=== PATIENT | male | born 1935 ===

== ENCOUNTER 2017-11-17 14:07 | Inpatient (IN) | payer MEDICARE, BC ==
[~2017-11-17] VITALS: Ht 149.8 cm; Wt 77.1 kg
--- NOTE | ~2017-11-17 | PR ---
[place], [place] PROGRESS NOTE NAME: ANA FELDMAN SR UNIT #: [id number] ROOM: 312 DOCTOR: LASHELL ARRIOLA MD BIRTHDATE: [birth year] DOS: 11/24/2017 CHIEF COMPLAINT: "Good morning." SUMMARY OF THE VISIT: The patient was interviewed as he was grabbing a magazine to read; he stopped and engaged in conversation readily. He remains pleasant, but confused. He could not tell me how long he has been here nor could he remember breakfast. He does complain of being constipated. No other complaints are noted. MENTAL STATUS: He is alert and oriented to person, possibly place, not to time. Mood does seem to be trending towards euthymia. Affect is more appropriate. There is no li, hypomania or psychosis. Short term memory is poor. PLAN: I will max out the Namenda, bringing it to 10 mg b.i.d., renew his phenobarbital, continue to support and monitor. LASHELL ARRIOLA MD CM:PNTRANS [id number] LASHELL ARRIOLA MD 11/25/17 0436 interface
--- NOTE | ~2017-11-17 | PR ---
[place], [place] PROGRESS NOTE NAME: ANA FELDMAN SR [id number] UNIT #: [id number] ROOM: 312 DOCTOR: LASHELL ARRIOLA MD BIRTHDATE: [birth year] DOS: 11/25/2017 CHIEF COMPLAINT: "I had an incomplete breakfast. I had no jam or jelly or sugar. I am not diabetic. I want to see the doctor." SUMMARY OF THE VISIT: The patient was interviewed as he was sitting in the dining area. He had his breakfast eaten and complained of the above noted issues. I did offer to get him another breakfast, but he now stated it is too late in the morning. He was fairly pleasant, otherwise and redirected easily. He still is very confused and disjointed and disoriented. MENTAL STATUS: He is alert and oriented to person, place, not time. Mood does seem to be trending towards euthymia. Affect is more appropriate. There is no li or hypomania. There are no auditory or visual hallucinations. Short-term memory continues to be problematic. PLAN: I will continue his current psychotropic regimen, awaiting PASR to be able to explore placement options. Discharge then when stable. LASHELL ARRIOLA MD CM:PNTRANS [id number] LASHELL ARRIOLA MD 11/26/17 0555 interface
--- NOTE | ~2017-11-17 | PR ---
[place], [place] PROGRESS NOTE NAME: ANA FELDMAN SR UNIT #: [id number] ROOM: 312 DOCTOR: JESSIE JOE DO BIRTHDATE: [birth year] DOS: 11/19/2017 PSYCHIATRIC PROGRESS NOTE SUMMARY OF VISIT: An 82-year-old male interviewed while eating breakfast in the dining jordan. He reports he does not know of any family visit and believes he has been in the hospital about 3 or 4 days. The patient has limited interaction during this interview and remains with his back turned to us while eating. Per nursing, the patient became argumentative if you bring up the incident where he drank [place]-Lita 2 weeks ago. In addition, the patient's son also had called about 4 times last night around 1:00 a.m., yelling at nurses and demanding to speak to his father. The patient has been attending and participating in group activities. The patient slept about 7 hours last night. MENTAL STATUS EXAMINATION: He is alert and oriented to person, place and time. Mood is depressed. The patient's thought processes are slow and somewhat disjointed. There is no li or hypomania. There is no agitation. Short term memory is mostly intact. PLAN: 1. The recent lab work showed the patient had decreased vitamin D at 18.5 and decreased vitamin B12 at 302. Vitamin D supplementation 2000 units p.o. q.a.m. and vitamin B12 injection 1000 mcg IM every 30 days have been started. 2. Exelon patch 4.6 mg daily. 3. We will continue to engage the patient in individual and shah milieu activity, returning to the least restrictive environment and psychiatrically stable. Discharge will depend on medical and psychiatric status at that time. ADDENDUM Dr. Arriola 11/27 03:30 p.m.: Above note reviewed. Agree with observations, recommendations, and overall treatment plan. Jessie Joe DO [place], [place] PROGRESS NOTE NAME: ANA FELDMAN SR UNIT #: [id number] ROOM: 312 DOCTOR: JESSIE JOE DO BIRTHDATE: [birth year] LASHELL ARRIOLA MD CM:PNSAMARA 104 KARIN JOE 12/30/17 1042 JENNIFER SIU.TM
--- NOTE | ~2017-11-17 | PR ---
[place], [place] PROGRESS NOTE NAME: ANA FELDMAN SR UNIT #: [id number] ROOM: 312 DOCTOR: LASHELL ARRIOLA MD BIRTHDATE: [birth year] DOS: 11/23/2017 CHIEF COMPLAINT: "Oh, good morning." SUMMARY OF THE VISIT: The patient was interviewed in the dining area where he was sitting by himself. As I approached, he engaged in conversation. He was pleasant, but confused. He could not tell me how long he has been here in the hospital, nor could he remember why. He did report he is sleeping and eating well. He voiced no other complaints. MENTAL STATUS: He is alert and oriented with time gaps that are significant. Mood does seem to be more euthymic. Affect is more appropriate. There is no li, hypomania or psychosis. Short term memory is exceedingly poor. PLAN: I will maintain his Exelon patch at 13.3 mg a day, increase Namenda from 10 mg daily to 15 mg daily with a target dose of 20 mg a day in mind. LASHELL ARRIOLA MD CM:PNTRANS [phone] LASHELL ARRIOLA MD 11/24/17 0039 interface
--- NOTE | ~2017-11-17 | CON ---
[place], [place] REPORT OF CONSULTATION NAME: [facility]AN SR [id number] UNIT #: [id number] ROOM: 312 DOCTOR: KARLIE SCHUMACHER ED.DJIE) BIRTHDATE: [birth year] DOS: 11/19/2017 HISTORY OF PRESENT ILLNESS: The patient is an 82-year-old male referred by Dr. Arriola for competency. At the present time, this patient is on the Senior Behavioral Health Unit at [facility]. When I asked him his age, he told me he was 62 years old but eventually did figure out that he is 82 years old. He states that he is , but has been for quite some time. He has 5 children, 4 sons and 1 daughter. I spoke at length with his son, Jone, who is his power of family law attorney. 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 He states his family physician is Dr. Jean. His medical history is pertinent for major depressive disorder with psychotic features, sleep apnea, seizure disorder, history of left colectomy, splenectomy and a history of cardiac surgery, coronary artery disease, COPD and hypertension. His medications include Remeron, Invega, phenobarbital and Dilantin. This patient does not use any alcoholic beverages, but does admit that he did smoke, but did quit quite some time ago. He was awake, alert and oriented to person only. He knew he was in the Behavioral Health Unit in the hospital, but he did not know where the hospital was. He did know that it was 2017, but he was not certain of the month. He was aware he had been in another hospital before he came to [facility], but he could not name the hospital. He could not tell me the street, where he lived and could not tell me the town where he lived. He could also not tell me where his children lived, although several live nearby according to the patient. His short and his long-term memory appear to be impaired with his short term memory more impaired. His insight, judgment and concentration are poor. He did state that he did not think he could return home, which is definitely the case for this patient. In my opinion, he needs to go to some type of assisted living facility. He also does have a guardian who is his son and I think all decision should be made by his guardian at this time because the patient is clearly not competent to understand the risks and benefits of his decisions. He apparently drank [place]Lita in an attempt to commit suicide. He has been hospitalized twice over the last several weeks for suicide gestures. He stated that he knew he did the wrong thing and that it was against his belief in God, but he was not certain exactly why he did became very depressed. DIAGNOSES: 1. Major depressive disorder with psychotic features. 2. Minor neurocognitive disorder - mild Alzheimer disease. RECOMMENDATIONS: In my opinion, all the decisions should be made by his healthcare power of family law attorney because he is clearly not able to make decisions about his self-care and he is clearly not able to live independently. Thank you very much for this consult. [place], [place] REPORT OF CONSULTATION NAME: ARIADNA FELDMAN SRMASOLE [place] UNIT #: [id number] ROOM: 312 DOCTOR: KARLIE SCHUMACHER ED.D (JIE) BIRTHDATE: [birth year] KARLIE SCHUMACHER ED.D CM:CONSTR:REPORT OF CONSULTATION 31 11/20/17 1443 destiny ARRIOLA MD
--- NOTE | ~2017-11-17 | DS ---
[place], [place] DISCHARGE SUMMARY NAME: [id number] UNIT #: [id number] ROOM: 312 DOCTOR: LASHELL ARRIOLA MD BIRTHDATE: [birth year] DOS: 11/27/2017 CHIEF COMPLAINT: "I wish people would stop talking about it, I made a mistake." HISTORY OF PRESENT ILLNESS: This is an 82-year-old male who was sent here on an involuntary basis from [facility]. The patient had presented there with a chief complaint of Pinesol overdose. The patient had previously tried another suicide attempt approximately 2 weeks prior to this attempt. The patient reportedly has been feeling much more depressed and stated to doctors at [facility] that he just wanted to . Most recently, he was given a diagnosis of Alzheimer dementia, which seems to be worsening his overall disposition: The patient presented to [place] very depressed and rambling with tangential speech. Given the severity of his depression with multiple suicide attempts, it was decided that inpatient stabilization was warranted and he was sent here on an involuntary basis to rule out any organic factors to attempt to stabilize on medication, to engage in individual and shah milieu activity and then to return to the least restrictive environment when psychiatrically stable. PAST MEDICAL HISTORY: Remarkable for coronary artery disease, COPD, hypertension, obstructive sleep apnea, seizure disorder. SOCIAL HISTORY: He has been a cigarette smoker in the past. He has never used smokeless tobacco. He does not drink alcohol nor use illicit drugs. STRENGTHS: He is ambulatory and has a supportive family. WEAKNESSES: Worsening confusion and poor coping skills. SUMMARY OF HOSPITAL COURSE: The patient was admitted to the unit where he was found to be both depressed and somewhat confused. He was started on Remeron 15 mg at bedtime as well as Invega 3 mg in the morning to decrease some of his mood lability and impulsivity. Additionally, he was started on Exelon patch and Namenda to help improve or maintain ADLs, behavior and cognition. He tolerated the medication regimen well. The Remeron and the Invega were maintained at their starting doses with good benefit. The Exelon patch was increased gradually from its starting dose of 4.6 mg a day to its target dose of 13.3 mg a day while Namenda was started at 5 mg a day and brought up to its maximum dose of 10 mg twice daily. The patient had substantial and significant improvement. His sleep and appetite normalized. He no longer voiced suicidal thoughts. He did engage in individual and shah milieu activity. He was able to read, watch television and engage in activities very well. Family was contacted and they did request that he be placed into a long-term care facility as he could no longer live independently. A passer was obtained and the patient was eventually accepted by [facility] in [place], [place]. MENTAL STATUS AT DISCHARGE: The patient is alert and oriented to person, place, not necessarily time. Mood does seem to be euthymic. He was able to laugh and joke with me on the day of discharge. He engaged readily in conversation. His [place], [place] DISCHARGE SUMMARY NAME: ANA FELDMAN SR Nas [facility]: [id number] UNIT #: [id number] ROOM: [facility] DOCTOR: LASHELL ARRIOLA MD BIRTHDATE: [birth year] speech rate and pattern had normalized. There was no tangentiality or circumstantiality. There was no overt hypomania or li and likewise, there were no overt auditory or visual hallucinations. He did process slowly at times and short-term memory continued to be problematic. DISCHARGE DIAGNOSES: Major depression, recurrent with psychotic features and Alzheimer's dementia. DISPOSITION: The patient is to go to [facility]. I will follow him there psychiatrically. At the time of discharge, he was medically and psychiatrically stable and his biopsychosocial needs were adequately being met by his family as well as the community at large. LASHELL ARRIOLA MD CM:DISCHARG [phone] LASHELL ARRIOLA MD 11/28/17 0025 interface
--- NOTE | ~2017-11-17 | PR ---
[place], [place] PROGRESS NOTE NAME: GASTON HERNADEZANA Lovell UNIT #: [id number] ROOM: 312 DOCTOR: JESSIE JOE DO BIRTHDATE: [birth year] DOS: 11/20/2017 PSYCHIATRIC PROGRESS NOTE CHIEF COMPLAINT: ""Very glad, very happy." SUMMARY OF VISIT: An 82-year-old male was interviewed while sitting in the dining jordan reading. The patient reports that he is very happy and that he has his glasses now because he can read better. He states that originally taken away, but now he can enjoy reading. Asked the patient how long he has been here and the patient states he has been here too long and that we cannot keep him here forever. Per nursing staff, the patient slept over 8 hours last night. MENTAL STATUS EXAMINATION: He is alert and oriented to person, but not place or time. Mood is depressed. He has disjointed thought processes. There is no li or hypomania. There is no agitation. Short-term memory now has some gap. PLAN: 1. Increase Exelon patch 9.5 mg daily. 2. Namenda 5 mg at bedtime. 3. Dr. Tobar has deemed the patient to be incompetent. 4. We will continue to encourage the patient to engage in individual and shah milieu activity, returning to the least restrictive environment when psychiatrically stable. ADDENDUM Dr. Arriola 11/27 03:30 p.m.: Above note reviewed. Agree with observations, recommendations, and overall treatment plan. Jessie Joe DO [place], [place] PROGRESS NOTE NAME: ANA FELDMAN SR UNIT #: [id number] ROOM: 312 DOCTOR: JESSIE JOE DO BIRTHDATE: [birth year] LASHELL ARRIOLA MD CM:PNTRANS 1106 T: JESSIE JOE DO 11/27/17 1557 RINKU PATEL.JBR
--- NOTE | ~2017-11-17 | WRIGHTHP ---
[place], [place] PATIENT HISTORY AND PHYSICAL EXAM NAME[id number] UNIT #: [id number] ROOM: 312 DOCTOR: LASHELL ARRIOLA MD BIRTHDATE: [birth year] DOS: 11/18/2017 PSYCHIATRIC EVALUATION CHIEF COMPLAINT: "I wish people would stop talking about it, I made a mistake." HISTORY OF PRESENT ILLNESS: This is an 82-year-old male who was sent here on an involuntary basis from [facility]. The patient had presented there with the chief complaint of a Pinesol overdose. The patient had tried suicide approximately 2 weeks prior to this as well. He has been feeling increasingly depressed and stated to the doctors at [facility] that he wanted to . Most recently, he was given the diagnosis of Alzheimer's dementia, which seems to be complicating matters. While presenting to [place], he was found to be very depressed with very rambling, tangential speech. It was felt that given the severity of his depression and suicide attempt that inpatient stabilization was warranted. The patient was sent from [facility] to the [facility] for further evaluation and treatment. PAST MEDICAL HISTORY: Remarkable for coronary artery disease, COPD, hypertension, obstructive sleep apnea and seizure disorder. He does have a past surgical history of a left colectomy, a lung surgery, splenectomy and cardiac surgery. The patient has been a cigarette smoker in the past. He has never used smokeless tobacco. He does not drink alcohol or use illicit drugs. STRENGTHS: He is ambulatory. WEAKNESSES: Worsening confusion and poor coping skills. MENTAL STATUS: He is alert and oriented to person, place and approximate to time. Mood does seem to be depressed with anxious overtones. He does seem to be disjointed and fragmented in his thinking and is rather tangential at times. There does seem to be some neologism as well. He processes conversation slowly, some of this may be a language issue. Short term memory does have gaps, otherwise he is intact. DIAGNOSES: Major depression, recurrent with psychotic features, severe and Alzheimer's dementia. PLAN: I will start him on Remeron 15 mg at bedtime and Invega 3 mg in the morning, discontinue his p.r.n. Haldol and Benadryl. He is on phenobarbital and Dilantin. I will check an RBC, folate level to make certain that this is not low, engage in individual and shah milieu activity, returning to the least restrictive environment when psychiatrically stable. [place], [place] PATIENT HISTORY AND PHYSICAL EXAM NAME: GASTON ANA Nas UNIT #: [id number] ROOM: [facility] DOCTOR: LASHELL ARRIOLA MD BIRTHDATE: [birth year] LASHELL ARRIOLA MD CM:HISPHYS:PATIENT HISTORY AND PHYSICAL EXAMINATION [id number] LASHELL ARRIOLA MD 11/18/17 1014 interface
--- NOTE | ~2017-11-17 | PR ---
[place], [place] PROGRESS NOTE NAME: ANA FELDMAN SR UNIT #: [id number] ROOM: 312 DOCTOR: JESSIE JOE DO BIRTHDATE: [birth year] DOS: 11/22/2017 PSYCHIATRIC PROGRESS NOTE CHIEF COMPLAINT: "Okay." SUMMARY OF VISIT: An 82-year-old male who was interviewed while lying in bed, sleeping. The patient was able to be aroused to communicate with us during this interview. The patient reports that he ate breakfast consisting of eggs, salad, yogurt and apple juice. He states that this is not a fancy hotel, but you get what you got. The patient complains of being cold. Per nursing staff, the patient slept about 8 hours last night and continues to be pleasantly confused. MENTAL STATUS EXAMINATION: He is alert and oriented to person, but not place or time. Mood is becoming more euthymic. Affect is more appropriate. There is no li or hypomania. There is no agitation. Short term memory has gasps. PLAN: 1. Increase Exelon patch 13.3 mg daily. 2. We will engage in individual and shah milieu activities with plan to return to the least restrictive environment when psychiatrically stable. ADDENDUM Dr. Arriola 11/27 03:30 p.m.: Above note reviewed. Agree with observations, recommendations, and overall treatment plan. Jessie Joe DO LASHELL ARRIOLA MD CM:PNTRANS 1130 T: JESSIE JOE DO 11/27/17 1559 RINKU PATEL.JBR
--- NOTE | ~2017-11-17 | PR ---
[place], [place] PROGRESS NOTE NAME: GASTON HERNADEZANA P UNIT #: [id number] ROOM: 312 DOCTOR: JESSIE JOE DO BIRTHDATE: [birth year] DOS: 11/26/2017 CHIEF COMPLAINT: "That will be nice." SUMMARY OF VISIT: An 82-year-old male who was interviewed while sitting in the dining jordan waiting for breakfast. Informed the patient that we will make sure that he gets jelly, jam and sugar with his breakfast and patient smiled and reports that would be nice. Patient also reports that his lunch was okay yesterday and that his family has visited him about twice while he has been here. Asked the patient what more we can do for him and he responded, "not much, get me out of here." SUBJECTIVE: Per nursing staff, the patient became fixated on his medications last night, especially when he was given additional Dulcolax medication with his other medications and woke up feeling that something was wrong. The patient was noted at that time to have audible wheezes and he had been previously refusing his breathing treatments. At that time, the patient agreed to have a breathing treatment and was able to sleep 8 hours afterwards. MENTAL STATUS EXAMINATION: The patient is alert and oriented to person, place, but not time. Mood is more euthymic. Affect is more appropriate. There is no li or hypomania. There are no auditory or visual hallucinations. Short-term memory is poor. PLAN: 1. Continue current medication regimen. 2. Continue to engage in individual and shah milieu activity, returning to the least restrictive environment when psychiatrically stable. ADDENDUM Dr. Arriola 11/27 03:30 p.m.: Above note reviewed. Agree with observations, recommendations, and overall treatment plan. Jessie Joe DO [place], [place] PROGRESS NOTE NAME: ANA FELDMAN SR UNIT #: [id number] ROOM: 312 DOCTOR: JESSIE JOE DO BIRTHDATE: [birth year] LASHELL ARRIOLA MD CM:PNTRANS 0859 T: JESSIE JOE DO 11/27/17 1601 RINKU PATEL.R
--- NOTE | ~2017-11-17 | PR ---
[place], [place] PROGRESS NOTE NAME: [facility]ELDMAN SR [id number] UNIT #: [id number] ROOM: 312 DOCTOR: JESSIE JOE DO BIRTHDATE: [birth year] DOS: 11/21/2017 CHIEF COMPLAINT: "No not done yet." SUMMARY: An 82-year-old male interviewed while sitting in the dining jordan. He reports he slept alright and ate breakfast, but is not hungry right now. The patient's speech appears to be somewhat mumbling when he is responding to questions. Per nursing staff, the patient has been withdrawing to himself and did not attend group therapy yesterday. The patient slept about 8 hours overnight. MENTAL STATUS EXAMINATION: He is alert and oriented to person, but not place or time. Mood is depressed. He has become more withdrawn and has started to isolate himself more. He has some disjointed thought processes. There is no li or hypomania. There are no agitation. Short-term memory continues to have gaps. PLAN: 1. Increase Namenda 5 mg b.i.d. 2. We will engage him in individual and shah milieu activity with the plan to return to the least restrictive environment when psychiatrically stable. ADDENDUM Dr. Arriola 11/27 03:30 p.m.: Above note reviewed. Agree with observations, recommendations, and overall treatment plan. Jessie Joe, DO LASHELL ARRIOLA MD CM:PNSAMARA 1113 T: JESSIE JOE DO 11/27/17 1558 RINKU PATEL.LLR
[2017-11-17] MEDS ORDERED: DILANTIN100 MG PO (14:32)
[2017-11-17] MEDS ORDERED: LIPITOR10 MG PO (14:33)
[2017-11-17] MEDS ORDERED: Lopressor25 MG PO (14:33)
[2017-11-17] MEDS ORDERED: VENTOLIN 02.5 MG/3 M INH (14:34)
[2017-11-17] MEDS ORDERED: Synthroid,Lev100 MCG PO (14:36)
[2017-11-17] MEDS ORDERED: PHENOBARBITAL64.8 MG PO (14:36)
[2017-11-17] MEDS ORDERED: PROAIR HFA8.5 GM INH (14:38)
[2017-11-17 16:36] VITALS: BP 145/90
[2017-11-17 20:08] VITALS: BP 142/88
[2017-11-18 06:23] LABS: ALBUMIN 4.2 gm/dl (3.1-4.5); ALKALINE PHOSPHATASE 123 U/L (45-117); BUN 9 mg/dl (7-24); CHLORIDE 96 mmol/L (98-107); CHOLESTEROL 223 mg/dL (<200); CREATININE 0.87 mg/dL (0.70-1.30); HDL CHOLESTEROL 100 mg/dl (40-60); LDL CHOLESTEROL 111 mg/dL (9-159); PHENYTOIN (DILANTIN) 9.2 ug/ml (10-20); POTASSIUM 4.1 mmol/L (3.5-5.1); SGOT/AST 15 IU/L (3-35); SGPT/ALT 22 U/L (12-78); SODIUM 133 mmol/L (136-145); TOTAL PROTEIN 8.2 gm/dL (6.4-8.2); TRIGLYCERIDES 60 mg/dl (<150); VLDL CHOLESTEROL 12 mg/dL (6-40)
[2017-11-18 06:24] LABS: BASO # 0.1 10*3/uL (0.0-0.1); EOS # 0.3 10*3/uL (0.0-0.4); EOS % 3.1 % (1.0-4.0); HEMATOCRIT 43.6 % (42.0-52.0); HEMOGLOBIN 14.5 g/dl (14.0-18.0); LYMPH % 34.2 % (27.0-41.0); MEAN CORPUSCULAR HGB 30.9 pg (27.0-31.0); MEAN CORPUSCULAR HGB CONC 33.3 g/dl (33.0-37.0); MEAN PLATELET VOLUME 10.3 fl (9.6-12.3); MONO # 0.9 10*3/uL (0.1-1.0); MONO % 10.6 % (3.0-9.0); NEUT # 4.5 10*3/uL (2.3-7.9); NEUT % 50.9 % (47.0-73.0); PLATELET COUNT AUTOMATED 353 10*3/uL (130-400); RED BLOOD COUNT 4.69 10*6/uL (4.50-5.90); WHITE BLOOD COUNT 8.8 10*3/uL (4.8-10.8)
[2017-11-18 06:28] LABS: PHENOBARBITAL (LUMINAL) 25.4 ug/ml (15-40)
[2017-11-18 07:53] VITALS: BP 128/70
[2017-11-18 08:35] LABS: VITAMIN D, 25-HYDROXY 18.5 ng/mL (30-100)
[2017-11-18 19:49] VITALS: BP 157/89
[2017-11-19 06:11] LABS: RBC, FOLATE HEMATOCRIT 41.7 % (37.5-51.0)
[2017-11-19 08:09] VITALS: BP 143/76
[2017-11-19 20:14] VITALS: BP 110/68
[2017-11-20 08:05] VITALS: BP 112/80
[2017-11-20 20:27] VITALS: BP 128/84
[2017-11-21 08:13] VITALS: BP 136/73
[2017-11-21 20:20] VITALS: BP 109/66
[2017-11-22 07:52] VITALS: BP 132/68
[2017-11-22 20:00] VITALS: BP 129/73
[2017-11-23 08:36] VITALS: BP 114/63
[2017-11-23 08:50] VITALS: BP 114/63
[2017-11-23 19:50] VITALS: BP 141/78
[2017-11-23 19:52] VITALS: BP 109/82
[2017-11-24 06:49] LABS: BASO # 0.1 10*3/uL (0.0-0.1); BASO % 1.5 % (0.0-1.0); EOS # 0.7 10*3/uL (0.0-0.4); EOS % 9.4 % (1.0-4.0); HEMATOCRIT 37.6 % (42.0-52.0); HEMOGLOBIN 12.5 g/dl (14.0-18.0); LYMPH # 2.3 10*3/uL (1.3-4.4); LYMPH % 31.1 % (27.0-41.0); MEAN CELL VOLUME 94.9 fl (80.0-94.0); MEAN CORPUSCULAR HGB 31.6 pg (27.0-31.0); MEAN CORPUSCULAR HGB CONC 33.2 g/dl (33.0-37.0); MEAN PLATELET VOLUME 10.4 fl (9.6-12.3); MONO # 1.1 10*3/uL (0.1-1.0); MONO % 14.1 % (3.0-9.0); NEUT # 3.3 10*3/uL (2.3-7.9); NEUT % 43.8 % (47.0-73.0); PLATELET COUNT AUTOMATED 268 10*3/uL (130-400); RED BLOOD COUNT 3.96 10*6/uL (4.50-5.90); RED CELL DISTRI WIDTH 14.5 % (0-14.5); WHITE BLOOD COUNT 7.5 10*3/uL (4.8-10.8)
[2017-11-24 07:18] LABS: BUN 11 mg/dl (7-24); CHLORIDE 101 mmol/L (98-107); CREATININE 0.89 mg/dL (0.70-1.30); POTASSIUM 4.5 mmol/L (3.5-5.1); SODIUM 137 mmol/L (136-145)
[2017-11-24 07:49] VITALS: BP 125/75
[2017-11-24 19:49] VITALS: BP 131/70
[2017-11-25 07:29] VITALS: BP 124/78
[2017-11-25 20:02] VITALS: BP 130/90
[2017-11-26 07:57] VITALS: BP 139/76
[2017-11-26 19:49] VITALS: BP 141/70
[2017-11-27 07:39] VITALS: BP 134/86
[2017-11-27] MEDS ORDERED: MIRTAZAPINE15 M2 PO (10:25)
[2017-11-27] MEDS ORDERED: PALIPERIDONE ER3 MG PO (10:25)
[2017-11-27] MEDS ORDERED: LACTULOSE20 GM/30 M PO (10:25)
[2017-11-27] MEDS ORDERED: MEMANTINE HCL10 MG PO (10:25)
[2017-11-27] MEDS ORDERED: EXELON13.3 MG/21 T (10:25)
[2017-11-27] MEDS ORDERED: VITAMIN D-32000 UNIT PO (12:04)
[2017-11-27] MEDS ORDERED: B121000 MCG/1 IM (12:04)
[2017-11-27] MEDS ORDERED: DILANTIN100 MG PO (12:26)
[2017-11-27] MEDS ORDERED: PHENOBARBITAL64.8 MG PO (12:27)
== END 2017-11-27 12:30 | disposition other institution (70) | DRG 885 ==
LOC: 3N 14:07
PROVIDERS: Internal Medicine; Psychiatry & Neurology Psychiatry
DX: F33.3 Major depressive disorder, recurrent, severe with psychotic symptoms (principal); G40.909 Epilepsy, unspecified, not intractable, without status epilepticus; E87.1 Hypo-osmolality and hyponatremia; G30.9 Alzheimer's disease, unspecified; F02.80 Dementia in other diseases classified elsewhere, unspecified severity, without behavioral disturbance, psychotic disturbance, mood disturbance, and anxiety; J44.9 Chronic obstructive pulmonary disease, unspecified; T14.91XA Suicide attempt, initial encounter; E55.9 Vitamin D deficiency, unspecified; I25.10 Atherosclerotic heart disease of native coronary artery without angina pectoris; I10 Essential (primary) hypertension; G47.33 Obstructive sleep apnea (adult) (pediatric); K59.00 Constipation, unspecified; Z90.49 Acquired absence of other specified parts of digestive tract; Z95.1 Presence of aortocoronary bypass graft; Z85.038 Personal history of other malignant neoplasm of large intestine; Z88.8 Allergy status to other drugs, medicaments and biological substances; Z79.51 Long term (current) use of inhaled steroids; Z79.899 Other long term (current) drug therapy; Z87.891 Personal history of nicotine dependence; Y93.89 Activity, other specified; Y92.89 Other specified places as the place of occurrence of the external cause; Y99.8 Other external cause status